=== PATIENT | female | born 1960 | race American Indian/Alaskan Native ===

== ENCOUNTER 2019-05-18 20:02 | Emergency (ER) | payer SELFPAY ==
--- NOTE | 2019-05-18 20:15 | Emergency Department Report ---
Blank Doc - Documentation Documentation: 58-year-old female that presents with URI symptoms. This initial assessment/diagnostic orders/clinical plan/treatment(s) is/are subject to change based on patient's health status, clinical progression and re- assessment by fellow clinical providers in the ED. Further treatment and workup at subsequent clinical providers discretion. Patient/guardians urged not to elope from the ED as their condition may be serious if not clinically assessed and managed. Initial orders include: 1- Patient sent to [facility] for further evaluation and treatment 2- CXR
[2019-05-18 20:16] VITALS: BP 159/88
--- NOTE | 2019-05-18 21:03 | XRay Report ---
CHEST 2 VIEWS INDICATION: MAIN: cough; Cough for one week. Chest pain with cough. N&V yesterday. Nonlabored. MAEW. . COMPARISON: None. FINDINGS: Support devices: None. Heart: Within normal limits. Lungs/Pleura: No acute air space or interstitial disease. No significant pleural effusion. IMPRESSION: No acute findings. Signer Name: Miguel A Reno MD Signed: 05/18/2019 8:58 PM Workstation Name: [id number]
--- NOTE | 2019-05-18 22:08 | Emergency Department Report ---
Minor Respiratory - HPI Chief Complaint: Upper Respiratory Infection Stated Complaint: CHEST PAIN/COUGH Time Seen by Provider: 05/18/19 20:14 Duration: 1 week Minor Respiratory: Yes Cough Other History: 58-year-old female brought in for cough for one week. Patient states she has chest pain with cough. She had nausea and vomiting yesterday. She reports having a headache. She reports she has vomiting after she coughs too hard. Patient is taking nothing for her cough nothing for her headache. Patient reports a past medical history of hypertension and takes nothing for that. ED Review of Systems ROS: Stated complaint: CHEST PAIN/COUGH Other details as noted in HPI Comment: All other systems reviewed and negative Respiratory: cough ED Past Medical Hx - Past Medical History Previous Medical History?: No - Surgical History Past Surgical History?: Yes Additional Surgical History: OVARIAN CYST - Social History Smoking Status: Never Smoker Substance Use Type: None Minor Respiratory Exam - Exam General: Vital signs noted. No distress. Alert and acting appropriately. HEENT: Yes Moist Mucous Membranes, No Pharyngeal Erythema, No Pharyngeal Exudates, No Rhinorrhea, No Conjuctival Injection, No Frontal Tenderness, No Maxillary Tenderness Neck: Yes Supple, No Adenopathy Lungs: Yes Good Air Exchange, No Wheezes, No Ronchi, No Stridor, No Cough, No La bored Respirations, No Retractions, No Use of Accessory Muscles, No Other Abnormal Lung Sounds Heart: Yes Regular, No Murmur Abdomen: Yes Normal Bowel Sounds, No Tenderness, No Peritoneal Signs Neurologic: Alert and oriented, no deficits. Musculoskeletal: Unremarkable. ED Course Vital Signs 05/18/19 20:13 Temperature 99 F Pulse Rate 102 H Respiratory 18 Rate Blood Pressure 159/88 O2 Sat by Pulse 99 Oximetry ED Medical Decision Making - Radiology Data Radiology results: report reviewed Patient: GABRIELA COLLAZO MR# : [id number] : 1960 Acct:[id number] Age/Sex: 58 / F ADM Date: 05/18/19 Loc: ED Attending Dr: Ordering Physician: MAUREEN CORTES NP Date of Service: 05/18/19 Procedure(s): XR chest routine 2V Accession Number(s): [id number] cc: MAUREEN CORTES NP Fluoro Time In Minutes: CHEST 2 VIEWS INDICATION: MAIN: cough; Cough for one week. Chest pain with cough. N V yesterday. Nonlabored. MAEW. . COMPARISON: None. FINDINGS: Support devices: None. Heart: Within normal limits. Lungs/Pleura: No acute air space or interstitial disease. No significant pleural effusion. IMPRESSION: No acute findings. Signer Name: Miguel A Reno MD Signed: 05/18/2019 8:58 PM Workstation Name: [id number] Transcribed By: ES Dictated By: Miguel A Reno MD Electronically Authenticated By: Miguel A Reno MD Signed Date/Time: 05/18/192057 DD/ 57 TD/TT: - Medical Decision Making 58-year-old female brought in for cough for one week. Patient states she has chest pain with cough. She had nausea and vomiting yesterday. She reports having a headache. She reports she has vomiting after she coughs too hard. Patient is taking nothing for her cough nothing for her headache. Patient reports a past medical history of hypertension and takes nothing for that. Discussed with patient and family member that she should take Tylenol or ibuprofen for her headache Robitussin, Claritin for her cough. And to follow-up with her primary care provider. X-ray was negative for any acute findings Critical care attestation.: If time is entered above; I have spent that time in minutes in the direct care of this critically ill patient, excluding procedure time. ED Disposition Clinical Impression: Cough, Headache Disposition: DC-01 TO HOME OR SELFCARE Is pt being admited?: No Does the pt Need Aspirin: No Condition: Stable Instructions: Dextromethorphan (By mouth) Additional Instructions: Take Tylenol for headache. Take [id number] Robitussin and Claritin for cough. Follow up with her primary care provider. Referrals: ONEIL GOMES MD [Staff Physician] - 3-5 Days
[2019-05-18] MEDS ORDERED: ACETAMINOPHEN 325 MG TAB PO ONE (23:34)
[2019-05-18] MEDS ORDERED: ACETAMINOPHEN 325 MG TAB ONE (23:34)
== END 2019-05-18 23:35 | disposition home or self-care (01) ==
LOC: ED 20:02
DX: R51 Headache (principal); R05 Cough; R11.2 Nausea with vomiting, unspecified; R50.9 Fever, unspecified; Z88.6 Allergy status to analgesic agent
CPT/HCPCS: 71046; 99282